=== PATIENT | female | born 1965 | race Caucasian/White ===

== ENCOUNTER → 2024-01-08 08:46 | Outpatient (REF) | payer BC, SELFPAY | LOC: HWRAD 08:46 | PROVIDERS: ATTENDING PHYSICIAN Internal Medicine Hematology & Oncology | DX: Z13.820 Encounter for screening for osteoporosis (principal); Z78.0 Asymptomatic menopausal state; C50.412 Malignant neoplasm of upper-outer quadrant of left female breast | CPT/HCPCS: 77080 ==

== ENCOUNTER 2024-05-26 06:19 | Day surgery (SDC) | payer BC, SELFPAY ==
[2024-05-26] VITALS (10 sets, daily range): BP systolic 88–124; BP diastolic 57–71; BMI 37.5
[2024-05-26] MEDS: TYLENOL 1000 MG PO (13:39)
[2024-05-26] MEDS: NORMOSOL-R/PLASMALYTE-A 1000 IV (13:39)
[2024-05-26 13:52] LABS: Hematocrit 37.4 % (37.0-47.0); Hemoglobin 12.5 g/dL (12.0-16.0); Mean Corp Hgb Conc. 33.4 g/dL (33.0-37.0); Mean Corpuscular Hgb 29.9 pg (27.0-31.0); Mean Corpuscular Volume 89.5 fL (81.0-99.0); Mean Platelet Volume 11.1 fL (7.4-10.4); Platelet Count 190 10^3/uL (130-400); Red Blood Cell Count 4.18 10^6/uL (4.20-5.40); Red Cell Dist. Width 13.2 % (11.5-14.5); White Blood Cell Count 4.8 10^3/uL (4.8-10.8)
[2024-05-26 14:43] LABS: ALT (SGPT) 19 U/L (0-35); AST (SGOT) 29 U/L (14-36); Alkaline Phosphatase 86 U/L (38-126); Blood Urea Nitrogen 21 mg/dl (7-17); Calcium 9.4 mg/dl (8.4-10.2); Carbon Dioxide 25 mmol/L (22-30); Chloride 105 mmol/L (98-107); Estimated Creatinine Clearance 98 ml/min; Glucose 98 mg/dl (70-99); Potassium 4.7 mmol/L (3.5-5.1); Sodium 140 mmol/L (135-145); Total Bilirubin 0.8 mg/dl (0.2-1.3); Total Protein 6.2 g/dl (6.3-8.2); eGFR > 60.00
--- NOTE | 2024-05-26 17:09 | W.IMMPOSTOP ---
Surgical Immed Post Op Note
-
Primary Surgeon: ERROL Watson MD
Assisting Surgeon:
Pre-op Diagnosis: history of left breast cancer, history of left breast radiation
Post-op Diagnosis: same
Procedure Performed: revision to the left reconstructed breast, fat grafting to the left reconstructed breast
Anesthesia Type: General
Specimen / Cultures: None
Estimated Blood Loss: 30 cc
Complications: none
Operative Findings: as expected
--- NOTE | 2024-05-26 17:09 | OR.RPT ---
Operative Report
Operative Report
date of surgery: 05/26/2024
Surgeon: ERROL Watson MD
Preoperative diagnosis: History of left breast cancer, history of left left breast irradiation
Postoperative diagnosis: Same
Procedure:
1. Revision of the left reconstructed breast
2. Fat grafting to the left reconstructed breast, 220 cc, donor site abdomen
Complications: None
Anesthesia: General
Specimens: None
EBL: 30 cc
Indications for procedure: Patient is a 58-year-old female with a history of a left-sided breast cancer. She underwent a bilateral oncoplastic reduction. She then had postoperative radiation to the left breast. She was left with fibrosis of the
left breast lumpectomy scar, reduction scar and significant size mismatch. She desired correction and a plan was made for left-sided revision reconstructed breast via scar excision and fat grafting to the left breast with donor site anterior
abdomen. Risks were reviewed including wound healing complications, recurrent fibrosis, fat necrosis, donor site abnormality, bleeding, hematoma. She understood these risks and is desired to proceed and consented accordingly.
Procedure in detail: Patient was identified preoperatively and the surgical site was confirmed to be the left breast and anterior abdomen. All questions were answered and consents were confirmed. Patient was taken back to the operating room placed
supine on table. Anesthesia was induced and patient was prepped and draped in usual sterile fashion using ChloraPrep solution. Timeout for patient safety was performed was confirmed and bilateral SCDs were in place and preoperative antibiotics had
been administered. Procedure began with the injection of tumescent solution show solution consisting of lidocaine with epinephrine and 1 L of normal saline. A total of 2 L was utilized and distributed over the 4 quadrants of the anterior abdomen
and flanks. A portion of this fluid was also administered into the left breast. While the tumescent set in, the revisions of the left reconstructed breast were performed. Areas of fibrosis included the infra areolar scar, and left lateral
lumpectomy scar. Substation was performed with an 18-gauge needle into both of the scars. The scars were then freed from the underlying tissues. After an adequate skin release was determined that fat grafting could be amenable to correct the
contour deformities. Attention was then drawn back to the anterior abdomen where SAF E approach to lipo aspiration was performed. A total of 1200cc of Lipo aspirate was removed from the anterior abdomen with equal parts in each area. This fat
was then processed using the
System and rinsed with lactated Ringer's. In total 220 cc of filtered fat was amenable for structural fat grafting to the left breast. This was distributed over the the breast in general to correct the size mismatch. It was also distributed
focally to the areas of prior fibrotic scar release. This allowed for correction of the contour deformities.
All poke holes were closed with 5-0 fast. Patient tolerated procedure well was performed out complication, all counts were correct at the end of the case. She was extubated taken the PACU for further care.
[2024-05-26] MEDS: DILAUDID 0.25 MG IV ×2 (17:53→18:08)
== END 2024-05-26 19:29 | disposition home or self-care (01) ==
LOC: SDS 06:19
PROVIDERS: ATTENDING PHYSICIAN Surgery Plastic and Reconstructive Surgery
DX: Z42.1 Encounter for breast reconstruction following mastectomy (principal); Z92.3 Personal history of irradiation; Z85.3 Personal history of malignant neoplasm of breast; N60.32 Fibrosclerosis of left breast
CPT/HCPCS: 19380; 15771; 15772 ×4; 80053; 85027; 93005

== ENCOUNTER → 2024-11-17 22:24 | Emergency (ER) | payer BC, SELFPAY ==
[2024-11-17 22:38] VITALS: BP 143/72
[2024-11-17 22:54] VITALS: BMI 40.4
--- NOTE | 2024-11-18 00:44 | ED.GENMED ---
History of Present Illness
General
Chief Complaint: Chest Pain
Source: patient and spouse
Exam Limitations: none
Time Seen by Provider: 11/18/24 00:20
Nursing documentation reviewed up to this point in time: agreed with except (Patient has history of left breast cancer status postlumpectomy. She did not have mastectomy.)
History of Present Illness
History of Present Illness:
This is a 59-year-old woman with history of left breast cancer status post lumpectomy (09/2023), radiation, currently maintained on tamoxifen. She presents with abrupt onset of severe right-sided chest pain that began around 9 PM while walking.
Right chest pain is pleuritic in nature, sharp, stabbing much worse with inspiration and patient admits that she is relegated to shallow respirations. She denies shortness of breath but admits that she cannot take a deep breath due to right-sided
chest pain. She has not had a cold, denies cough, no palpitations, no fever no chills. She does admit to intermittent dizziness, brief in nature over the past several days to perhaps a week but denies nasal congestion, no ear pain, no headache.
No recent travel, she denies leg pain or swelling.
She did take 1 low-dose aspirin with onset of pain.
No history of similar episodes of pain.
Past History
Past History
ED Past Medical History: Cancer (Left breast cancer status post lumpectomy in September 2023. XRT. Maintained on tamoxifen)
ED Past Surgical History: Appendectomy and Gynecological (Left breast lumpectomy September 2023)
Social History
Tobacco: Non-smoker
Personal:
Living: with family
Employment: Employed
Family History
Family History: Other (Noncontributory)
Phy Exam
Physical Exam
Physical Exam:
GENERAL: 59-year-old woman appears her stated age, awake and alert, appears in mild to moderate distress related to pain. is accompanying.
EYE: anicteric
NECK: Supple, nontender, no meningismus, no significant adenopathy.
ENT: posterior pharynx is clear, oral mucosa is moist. TM clear b/l, nares patent.
CARDIAC: Regular rate and rhythm. no murmur. No rub.
LUNGS: No respiratory distress but poor inspiratory effort related to right sided chest pain. There is no palpable chest wall tenderness. Decreased breath sounds at bases, equal excursion bilaterally.
ABDOMEN: Soft, nondistended, without focal tenderness, no r/g, no cvat. normoactive BS.
NEUROLOGICAL: Alert and oriented x3, no focal neuro deficits.
SKIN: Warm and dry, normal color, skin intact. No rash.
MUSCULOSKELETAL: No C/C/E. peripheral pulses are full and equal b/l. No palpable tenderness.
PSYCH: Normal and appropriate interaction.
Scores
Heart Score for Chest Pain Patients
STEMI patient?: No
History: Slightly or Non-Suspicious
ECG: Normal
Age: >45 - <65 years
Risk Factors: No Risk Factors
Troponin: </= Normal Limit
Heart Score for Chest Pain Patients: 1
Heart Score Risk: 2.5% MACE over next 6 weeks
Course
Orders/Labs/Results
Orders:
Orders
11/17/24 22:26
ECG [Electrocardiogram (*1)] Urgent
Reason for Study: Chest Pain
EKG- Treatment ONCE
Complete Blood Count/With Diff Urgent
Comprehensive Metabolic Panel Urgent
Troponin I Urgent
11/18/24 00:40
CT Chest PE Study Urgent
Comment:
Reason For Exam: acute severe R pleuritc chest pain
Morphine Sulfate 4 mg IV NOW STA
11/18/24 00:41
CR Chest - 2 Views Urgent
Comment:
Reason For Exam: acute severe R sided CP
11/18/24 03:14
US Abdomen Complete/Upper Urgent
Comment:
Reason For Exam: Pleuritic R CP, Gallstone noted on CT
US Periph Venous LOWER Ext [place] Urgent
Comment:
Reason For Exam: pleuritic R CP, concern for PE
11/18/24 03:21
Morphine Sulfate 4 mg IV NOW STA
11/18/24 05:04
Ketorolac [Toradol] 30 mg IV NOW STA
11/18/24 05:06
Azithromycin [Zithromax] 500 mg PO NOW STA
Abnormal Lab Results
11/18/24
00:47
MCHC 32.9 L g/dL
(33.0-37.0)
MPV 11.1 H fL
(7.4-10.4)
BUN 22 H mg/dl
(7-17)
Glucose 103 H mg/dl
(70-99)
Total Protein 6.1 L g/dl
(6.3-8.2)
11/18/24 00:47
11/18/24 00:47
Vital Signs
Initial and Last Documented VS:
Initial Vital Signs
Temp Pulse Resp BP Pulse Ox
98.2 F 71 24 143/72 98
11/17/24 22:38 11/17/24 22:38 11/17/24 22:38 11/17/24 22:38 11/17/24 22:38
Last Documented Vital Signs
Temp Pulse Resp BP Pulse Ox
98.2 F 76 13 126/73 98
11/17/24 22:38 11/18/24 01:43 11/18/24 01:43 11/18/24 06:00 11/18/24 06:00
MDM/Problems Addressed
Differential Diagnosis Includes:
Acute severe pleuritic right-sided chest pain. Concern for pneumothorax, pneumonia, pleurisy, dissection, PE, ACS, GERD.
EKG reassuring showing normal sinus rhythm, 1 unifocal PVC. No acute ST-T wave abnormalities and overall similar and unchanged from previous May 2024.
Will medicate for pain.
Labs are pending.
Will check chest x-ray, assess for potential pneumonia, pneumothorax. If this is unremarkable we will plan for CT of the chest/PE study assess for potential PE, dissection.
Chronic conditions affecting care: Cancer (Left breast cancer. Maintained on tamoxifen)
*Radiology
Radiology exam reviewed: preliminary read by ED provider (Chest x-ray shows small nodular density right lateral lower lobe as well as linear atelectasis left lower lobe. No pneumothorax.) and radiology read reviewed
*Pulse Oximetry
Patient hypoxic: no
*EKG
Interpreted by ED Provider?: Yes
Interpretation: normal
Comparison EKG: no changes (Unchanged from previous May 2024 save for unifocal PVC is new.)
Rate: normal
Rhythm: sinus and PVC's (1 unifocal PVC)
[place]: normal axis
Interval: normal interval
QRS Pattern: normal QRS
Ischemia: no ischemia
*Software Applications Architect Interpretation
Rate: normal
Interpretation: normal
Rhythm: sinus
*Critical Care Note
Total Time (30-74mins, 75-104mins- exclusive of procedures): Not Applicable
Update Note
Update Note:
03:00
Chest x-ray shows focal nodule right lateral lower lobe. No evidence of pneumothorax. Linear curved atelectasis left lower lobe.
Patient is somewhat more comfortable after IV dose of morphine.
CT of the chest/PE study shows a focal infiltrate right lower lobe that abuts the pleura. No definitive PE in that area but somewhat limited study due to motion artifact. Radiologist recommends repeat CT versus VQ scan versus ultrasound of the
legs to assess for DVT.
Will check ultrasound bilateral lower extremities and due to note of calcified gallstone within the gallbladder noted on CT there is still some concern for potential biliary colic however patient continues to have no right upper quadrant tenderness
to palpation. Nevertheless we will check abdominal ultrasound assess for potential cholecystitis.
Will continue IV morphine.
05:00
Bilateral lower extremity ultrasounds negative for DVT.
Abdominal ultrasound shows gallstone in the gallbladder fundus but no wall thickening, normal common bile duct.
Patient continues to have no abdominal pain.
I have reviewed the CT and chest x-ray and this is focal right lower lateral nodule corresponds with focal infiltrate right lateral middle lobe which appears to to be a pneumonic process in nature.
Will initiate a course of Zithromax for coverage of community acquired pneumonia.
Will trial an IV dose of Toradol for pleuritic chest pain that is markedly improved.
06:30
Patient resting comfortably, sleeps when undisturbed.
Marked improvement in right anterior focal chest pain/pleuritic in nature. Continues to have no shortness of breath.
Will discharge to home with prescription for Z-Christian as well as ibuprofen for pain.
Recommend rest, staying well-hydrated.
Prompt follow-up with PCP for recheck.
ED Attending Note
-
Portions of this chart may have been created with voice recognition software.� Occasional wrong word or��sound alike� substitutions may have occurred due to the inherent limitations of voice recognition software.
Discharge Plan
Departure
Patient Disposition: Home (Routine Discharge)
Date of Disposition: 11/18/24
Time of Disposition: 06:32
Patient with high blood pressure during this ER visit?: No
Condition: Good
Discharge Problem:
RML pneumonia, Acute pleurisy without pleural effusion
Instructions: Pneumonia in adults, Pleurisy
Prescriptions:
New
azithromycin [Zithromax] 250 mg Tablet
250 mg PO DAILY Qty: 6 0RF
Rx Instructions:
2 tabs day 1, 1 tab day 2-5
ibuprofen 800 mg tablet
800 mg PO QIDPRN PRN (Reason: pain, fever) Qty: 30 0RF
No Action
omeprazole magnesium [Prilosec OTC] 20 mg Tablet,Delayed Release (Dr/Ec)
20 mg PO DAILY
tamoxifen
Patient Comments:
unsure of dose, will call back with mg
cefadroxil 500 mg capsule
500 mg PO BID Qty: 14 0RF
tramadol 50 mg tablet
50 mg PO Q4H PRN (Reason: severe pain) Qty: 30 0RF
Referrals:
Mabel Montes De Oca CRNP [Family Provider] - Call in 1-3 days for appt
Interventions
Interventions:
*Risk Screen - Suicide Last Done: 11/17/24 22:38
*General Assessment Last Done: 11/17/24 22:38
*Neglect/Abuse Screening Last Done: 11/17/24 22:38
ED- Fall Risk Assessment Last Done: 11/17/24 22:52
ED- Cardiac Assessment Last Done: 11/17/24 22:52
Discharge Date and Time
Print Language: ITALIAN
[2024-11-18 00:47] VITALS: BP 107/64
[2024-11-18 00:59] LABS: % Basophils 0.6 % (0-2); % Eosinophils 3.2 % (0-6); % Immature Granulocytes 0.4 % (0-0.5); % Lymphocytes 29.1 % (20.5-51.1); % Monocytes 7.3 % (1.7-9.3); % Neutrophils 59.4 % (42.2-75.2); Absolute Eosinophils 0.2 10^3/uL (0-0.7); Absolute Monocytes 0.5 10^3/uL (0.1-0.6); Absolute Neutrophils 4.1 10^3/uL (1.4-6.5); Hematocrit 38.3 % (37.0-47.0); Hemoglobin 12.6 g/dL (12.0-16.0); Mean Corp Hgb Conc. 32.9 g/dL (33.0-37.0); Mean Corpuscular Hgb 29.8 pg (27.0-31.0); Mean Corpuscular Volume 90.5 fL (81.0-99.0); Mean Platelet Volume 11.1 fL (7.4-10.4); Nucleated Red Blood Cells % 0 %; Platelet Count 156 10^3/uL (130-400); Red Blood Cell Count 4.23 10^6/uL (4.20-5.40); Red Cell Dist. Width 12.8 % (11.5-14.5); White Blood Cell Count 6.9 10^3/uL (4.8-10.8)
[2024-11-18 01:16] LABS: ALT (SGPT) 17 U/L (0-35); AST (SGOT) 20 U/L (14-36); Albumin 4.1 g/dl (3.5-5.0); Alkaline Phosphatase 80 U/L (38-126); Blood Urea Nitrogen 22 mg/dl (7-17); Calcium 9.4 mg/dl (8.4-10.2); Carbon Dioxide 26 mmol/L (22-30); Chloride 105 mmol/L (98-107); Estimated Creatinine Clearance 91 ml/min; Glucose 103 mg/dl (70-99); Potassium 4.2 mmol/L (3.5-5.1); Sodium 141 mmol/L (135-145); Total Bilirubin 0.5 mg/dl (0.2-1.3); Total Protein 6.1 g/dl (6.3-8.2); eGFR > 60.00
[2024-11-18 01:26] LABS: Troponin I < 0.012 ng/ml
[2024-11-18] MEDS: MORPHINE SULFATE 4 MG IV ×2 (01:26→03:31)
[2024-11-18 02:23] VITALS: BP 123/69
[2024-11-18 03:00] VITALS: BP 122/66
[2024-11-18] MEDS: TORADOL 30 MG IV (05:10)
[2024-11-18] MEDS: ZITHROMAX 500 MG PO (05:10)
[2024-11-18 06:00] VITALS: BP 126/73
== END | disposition home or self-care (01) ==
LOC: EMR 22:24
PROVIDERS: Emergency Medicine; EMERGENCY PHYSICIAN Emergency Medicine; FAMILY PHYSICIAN Nurse Practitioner Family
DX: J18.9 Pneumonia, unspecified organism (principal); R09.1 Pleurisy; I49.3 Ventricular premature depolarization; Z85.3 Personal history of malignant neoplasm of breast; Z90.49 Acquired absence of other specified parts of digestive tract
CPT/HCPCS: 99284; 71046; 71275; 76700; 80053; 84484; 85025; 93005; 93970; Q9967

== ENCOUNTER → 2025-08-03 13:28 | Outpatient (REF) | payer BC, SELFPAY | LOC: HWWDC 13:28 | PROVIDERS: ATTENDING PHYSICIAN Nurse Practitioner Adult Health | DX: Z12.31 Encounter for screening mammogram for malignant neoplasm of breast (principal) | CPT/HCPCS: 77063; 77067 ==

== ENCOUNTER → 2025-08-17 10:11 | Outpatient (REF) | payer BC, SELFPAY | LOC: WDC 10:11 | PROVIDERS: ATTENDING PHYSICIAN Nurse Practitioner Adult Health | DX: R92.8 Other abnormal and inconclusive findings on diagnostic imaging of breast (principal) | CPT/HCPCS: 77065 ==

== ENCOUNTER → 2025-08-23 06:13 | Outpatient (REF) | payer BC, SELFPAY ==
--- NOTE | 2025-08-23 08:52 | OID.BR.INTR ---
[facility] Breast Navigator - Initial
- -
Date of Contact: 08/23/25
Met with patient. Will follow up as needed per protocol.
== END ==
LOC: WDC 06:13
PROVIDERS: ATTENDING PHYSICIAN Nurse Practitioner Adult Health
DX: R92.1 Mammographic calcification found on diagnostic imaging of breast (principal)
CPT/HCPCS: 19081; 76098; 88305; 88341; 88342; A4648